=== PATIENT | female | born 1960 | race Caucasian/White ===

== ENCOUNTER → 2022-03-18 13:46 | Outpatient (CLI) | payer OTHER, SELFPAY ==
--- NOTE | ~2022-03-18 | US_ITS ---
US soft tissue groin LT DATE: 03/18/2022 14:15 INDICATION: Groin mass on the left TECHNIQUE: Real-time imaging of the soft tissues of the left groin, color flow imaging COMPARISON: 01/02/2016 CT pelvis FINDINGS: There is evidence of a fat-containing left inguinal hernia, situated medial to the left com mon femoral vessels, measuring roughly 2.2 x 5 cm dimension. Occasional unremarkable left inguinal lymph nodes are identified. IMPRESSION: Left inguinal fat-containing hernia Reviewed, dictated and finalized at [facility]. Reviewed, dictated and finalized at [facility].
== END ==
PROVIDERS: PCP Internal Medicine
DX: R19.09 Other intra-abdominal and pelvic swelling, mass and lump (principal); K40.90 Unilateral inguinal hernia, without obstruction or gangrene, not specified as recurrent
CPT/HCPCS: 76882